=== PATIENT | female | born 1980 | race Caucasian/White ===

== ENCOUNTER 2018-06-17 00:30 | Emergency (ER) | payer SELFPAY ==
[2018-06-17 00:48] VITALS: RESP 20
[2018-06-17 01:28] LABS: BASO % 0.6 % (0.0-2.0); EOS # 0.1 K/uL (0.0-0.7); HEMOGLOBIN 11.5 g/dL (11.0-16.0); LYMPH # 3.2 K/uL (1.0-4.3); LYMPH % 43.8 % (20.0-40.0); MEAN CELL VOLUME 84.8 fL (81.0-99.0); MEAN CORPUSCULAR HEMOGLOBIN 28.3 pg (27.0-31.0); MEAN CORPUSCULAR HGB CONC 33.4 g/dL (33.0-37.0); MEAN PLATELET VOLUME 8.6 fL (7.2-11.7); MONO # 0.5 K/uL (0.0-0.8); MONO % 6.9 % (0.0-10.0); NEUT # 3.4 K/uL (1.8-7.0); NEUT % 46.7 % (50.0-75.0); NRBC % 0.1 % (0.0-2.0); RBC 4.05 Mil/uL (3.80-5.20); WHITE BLOOD COUNT 7.3 K/uL (4.8-10.8)
[2018-06-17 01:33] LABS: ALB/GLOB RATIO 1.2 (1.0-2.1); ALBUMIN 3.7 g/dL (3.5-5.0); ALT/SGPT 27 U/L (9-52); AST/SGOT 21 U/L (14-36); BLOOD UREA NITROGEN 17 mg/dL (7-17); CALCIUM 9.1 mg/dl (8.6-10.4); GFR NON-AFRICAN AMERICAN > 60
--- NOTE | 2018-06-17 01:39 | C.PDOC ---
History Of Present Illness 37 year old female presents to the ED c/o numbness and weakness to the left facial area that started this morning. Patient denies injury, fall, trauma, fever, chills, headache, visual changes, slurred speech, nausea, vomit, dizziness, neck rigidity. Chief Complaint (Nursing): Eye Problem History Per: Patient History/Exam Limitations: no limitations Onset/Duration Of Symptoms: Days Current Symptoms Are (Timing): Still Present Recent travel outside of the [place]: No Additional History Per: Patient Past Medical History Reviewed: Historical Data, Nursing Documentation, Vital Signs Vital Signs: Last Vital Signs Temp 98.7 F 06/17/18 00:44 Pulse 57 L 06/17/18 00:44 Resp 20 06/17/18 00:44 BP 135/94 H 06/17/18 00:44 Pulse Ox 99 06/17/18 00:44 - Medical History PMH: No Chronic Diseases Surgical History: No Surg Hx Family History: States: Unknown Family Hx - Social History Hx Tobacco Use: No Hx Alcohol Use: No Hx Substance Use: No - Immunization History Hx Influenza Vaccination: No Hx Pneumococcal Vaccination: No Review Of Systems Constitutional: Negative for: Fever, Chills Eyes: Negative for: Vision Change Cardiovascular: Negative for: Chest Pain Respiratory: Negative for: Shortness of Breath Gastrointestinal: Negative for: Nausea, Vomiting Skin: Negative for: Rash Neurological: Positive for: Weakness, Numbness. Negative for: Headache, Dizziness Physical Exam - Physical Exam Appears: Non-toxic, No Acute Distress Skin: Normal Color, Warm, Dry Head: Atraumatic, Normacephalic Eye(s): bilateral: Normal Inspection Oral Mucosa: Moist Neck: Normal ROM, Supple Chest: Symmetrical Cardiovascular: Rhythm Regular Respiratory: Normal Breath Sounds, No Rales, No Rhonchi, No Wheezing Gastrointestinal/Abdominal: Soft, No Tenderness, No Guarding, No Rebound Extremity: Normal ROM, No Tenderness, No Swelling Neurological/Psych: Oriented x3, Normal Speech, Normal Cognition, Other (mild weakness left facial aream mild inability to close left eyelid) Gait: Steady ED Course And Treatment - Laboratory Results Result Diagrams: 06/17/18 01:18 06/17/18 01:18 ECG: Interpreted By Me, Viewed By Me ECG Rhythm: Sinus Bradycardia ECG Interpretation: Normal Interpretation Of ECG: Sinus bradycardia, otherwise normal tracings. Rate From EC O2 Sat by Pulse Oximetry: 99 (ON RA) Pulse Ox Interpretation: Normal - CT Scan/US CT head Other Rad Studies (CT/US): Read By Radiologist, Radiology Report Reviewed CT/US Interpretation: CT SCAN OF THE BRAIN WITHOUT IV CONTRAST. CLINICAL INDICATION: Left-sided weakness. TECHNIQUE: Axial and reformatted sagittal and coronal images of the brain obtained without IV contrast administration. Normal size of the ventricles and extra-axial spaces for the patient's age. Normal white matter tracts of the supratentorial brain. Normal basal ganglia and thalami. Normal brainstem. Normal cerebellum. There is no demonstrated extra- axial, intraparenchymal, or intraventricular hemorrhage. There are no findings of an acute ischemic infarction. Normal calvarium. There is no demonstrated fracture. Normal soft tissue structures. Normal visualized paranasal sinuses. IMPRESSION: Normal unenhanced CT scan of the brain. Addendum electronically signed by Julian Wallace M.D., Certified by ABR, MSK, Neuroradiology on June 17, 2018 2:50:26 AM EDT Medical Decision Making Medical Decision Making: Plan: * CT head * Labs * EKG * Prednisone 20 mg PO Disposition Counseled Patient/Family Regarding: Diagnosis - Disposition Referrals: [facility] [Outside] Waqas Ledbetter MD [Staff Provider] - Disposition: HOME/ ROUTINE Disposition Time: 02:54 Condition: STABLE Prescriptions: Polyvinyl Alcohol/Povidone [Hm Artificial Tears Eye Drops] 1 drop OP Q4 #1 bot Prednisone 10 mg PO BID #10 [id number] Instructions: Carnes's Palsy (DC) Forms: [facility] (Monegasque), Gen Discharge Inst Azerbaijani Print Language: AMHARIC - POA Present On Arrival: None - Clinical Impression Clinical Impression: Carnes's palsy - Scribe Statement The provider has reviewed the documentation as recorded by the Scribe Ervin Meehan All medical record entries made by the Scribe were at my direction and personally dictated by me. I have reviewed the chart and agree that the record accurately reflects my personal performance of the history, physical exam, medical decision making, and the department course for this patient. I have also personally directed, reviewed, and agree with the discharge instructions and disposition.
[2018-06-17 02:44] VITALS: O2SAT 99
[2018-06-17 03:17] VITALS: BP 123/62; PULSE 89; TEMP 97.1
--- NOTE | 2018-06-17 09:54 | CT ---
Date of service: 06/17/2018 PROCEDURE: CT HEAD WITHOUT CONTRAST. HISTORY: left facial weakness COMPARISON: None available. TECHNIQUE: Axial computed tomography images were obtained through the head/brain without intravenous contrast. Radiation dose: Total exam DLP = 863.71 mGy-cm. This CT exam was performed using one or more of the following dose reduction techniques: Automated exposure control, adjustment of the mA and/or kV according to patient size, and/or use of iterative reconstruction technique. FINDINGS: HEMORRHAGE: No acute parenchymal, subarachnoid or extra-axial hemorrhage. BRAIN: No mass effect or edema. No atrophy or chronic microvascular ischemic changes. Note the possibility of a tiny hyperacute infarct cannot be excluded on this exam. No obvious parenchymal nor extra-axial mass or collection. Ventricular and sulcal size are within range of normal for this patient's stated age Minimal vascular calcification both vertebral arteries. VENTRICLES: Unremarkable. No hydrocephalus. CALVARIUM: Unremarkable. PARANASAL SINUSES: Unremarkable as visualized. No significant inflammatory changes. MASTOID AIR CELLS: Unremarkable as visualized. No inflammatory changes. OTHER FINDINGS: None. IMPRESSION: No acute intracranial hemorrhage. If symptoms persist or acute infarct suspected clinically recommend follow-up MRI of the brain with diffusion imaging the urgency of which should be based upon clinical correlation provided that there are no contraindications to MRI in this patient
--- NOTE | 2018-06-19 08:44 | CARD ---
APPROVED REPORT Date of service: 06/17/2018 EKG Measurement Heart [id number] <Conclusion> Sinus bradycardia Otherwise normal ECG
== END 2018-06-17 03:16 | disposition home or self-care (01) ==
LOC: C.ER 00:30
DX: G51.0 Bell's palsy (principal)

== ENCOUNTER 2018-06-19 15:56 | Emergency (ER) | payer SELFPAY ==
--- NOTE | 2018-06-19 16:27 | C.PDOC ---
History Of Present Illness 37-year-old female presents to the ED for evaluation of right-sided facial droop. Patient was evaluated in this ED on 06/16 for similar symptoms; she underwent CT Head which was negative and was discharged home with Prednisone, artificial tears and diagnosis of Carnes's Palsy. Patient had a headache today and was evaluated by [facility] and was referred to the ED for further evaluation. Patient notes vision change in her right eye because she is unable to properly close her eyelid. Patient denies nausea, vomiting, extremity numbness/weakness. Time Seen by Provider: 06/19/18 16:10 Chief Complaint (Nursing): Headache History Per: Patient History/Exam Limitations: no limitations Onset/Duration Of Symptoms: Days Current Symptoms Are (Timing): Still Present Associated Symptoms: denies: Nausea, Vomiting, Extremity Weakness Additional History Per: Patient Past Medical History Reviewed: Historical Data, Nursing Documentation, Vital Signs Vital Signs: Last Vital Signs Temp 98.4 F 06/19/18 16:02 Pulse 52 L 06/19/18 16:02 Resp 19 06/19/18 16:02 BP 114/71 06/19/18 16:02 Pulse Ox 95 06/19/18 16:02 - Medical History PMH: No Chronic Diseases Surgical History: No Surg Hx Family History: States: Unknown Family Hx - Social History Hx Tobacco Use: No Hx Alcohol Use: No Hx Substance Use: No - Immunization History Hx Tetanus Toxoid Vaccination: No Hx Influenza Vaccination: No Hx Pneumococcal Vaccination: No Review Of Systems Eyes: Positive for: Vision Change Gastrointestinal: Negative for: Nausea, Vomiting Neurological: Positive for: Other (right-sided facial droop). Negative for: Weakness, Numbness Physical Exam - Physical Exam Appears: Non-toxic, No Acute Distress Skin: Normal Color, Warm, Dry Head: Atraumatic, Normacephalic Eye(s): bilateral: Normal Inspection Oral Mucosa: Moist Neck: Supple Chest: Symmetrical, No Deformity, No Tenderness Cardiovascular: Rhythm Regular, No Murmur Respiratory: Normal Breath Sounds, No Rales, No Rhonchi, No Wheezing Extremity: Normal ROM, Capillary Refill (less than 2 seconds ) Neurological/Psych: Oriented x3, Normal Speech, Normal Cognition, Other (right- sided facial droop, including forehead ) ED Course And Treatment O2 Sat by Pulse Oximetry: 95 (on RA) Pulse Ox Interpretation: Normal Progress Note: Tylenol PO given. Reevaluation Time: 17:07 Reassessment Condition: Improved Disposition Counseled Patient/Family Regarding: Diagnosis, Need For Followup, Rx Given - Disposition Referrals: [facility] [Outside] Disposition: HOME/ ROUTINE Disposition Time: 17:07 Condition: IMPROVED Prescriptions: Tramadol HCl [Ultram] 50 mg PO QID PRN #14 tablet PRN Reason: Headache Instructions: Carnes's Palsy Forms: [employer] (Maltese) Print Language: KYRGYZ - Clinical Impression Clinical Impression: Carnes's palsy - Scribe Statement The provider has reviewed the documentation as recorded by the Scribe (Danii Fletcher) Provider Attestation: All medical record entries made by the Scribe were at my direction and personally dictated by me. I have reviewed the chart and agree that the record accurately reflects my personal performance of the history, physical exam, medical decision making, and the department course for this patient. I have also personally directed, reviewed, and agree with the discharge instructions and disposition.
[2018-06-19 17:46] VITALS: BP 113/66; PULSE 50; RESP 16; TEMP 98.2; O2SAT 99
== END 2018-06-19 17:45 | disposition home or self-care (01) ==
LOC: C.ER 15:56
DX: G51.0 Bell's palsy (principal)